=== PATIENT | male | born 1985 | race Asian ===

== ENCOUNTER 2022-09-20 17:47 | Outpatient (CLI) | payer OTHER ==
[2022-09-20 18:34] LABS: ALBUMIN 4.8 g/dL (3.4-4.8); CALCIUM 8.9 mg/dL (8.4-11.0); CREATININE 0.76 mg/dL (0.55-1.30); TOTAL BILIRUBIN 1.4 mg/dL (0.0-1.0)
== END 2022-09-20 18:53 | disposition home or self-care (01) ==
LOC: SLB 17:47
PROVIDERS: ATTEND Family Medicine
DX: L63.0 Alopecia (capitis) totalis (principal)
CPT/HCPCS: 36415; 80053; 80061; 82306